=== PATIENT | male | born 1935 | race Caucasian/White ===

== ENCOUNTER 2023-02-14 17:27 | Emergency (ER) | payer OTHER ==
[~2023-02-14] VITALS: Ht 177.8 cm; Wt 68.9 kg
[2023-02-14] MEDS ORDERED: ACETAMINOPHEN ES 500 MG TABLET PO ONE (18:30)
[2023-02-14] MEDS ORDERED: PIPERACILLIN /TAZOBACTAM 3.375 G in IV D5W 50 ML IV ONE (18:30)
[2023-02-14] MEDS ORDERED: VANCOMYCIN 1 GM in IV D5W 250 ML IV ONE (18:30)
[2023-02-14] MEDS ORDERED: IV NS 0.9% 1,000 ML BAG IV ONE (18:30)
[2023-02-14] MEDS ORDERED: ACETAMINOPHEN ES 500 MG TABLET ONE (18:41)
[2023-02-14 19:07] LABS: BASOPHILS % (AUTO) 0.2 % (0.0-2.0); EOSINOPHILS % (AUTO) 0.2 % (0.0-6.0); HEMATOCRIT 37 % (39-51); HEMOGLOBIN 12.3 g/dL (13.5-17.5); LYMPHOCYTES # (AUTO) 0.5 K/uL (0.8-4.8); LYMPHOCYTES % (AUTO) 3.9 % (20.0-44.0); MEAN CORPUSCULAR HEMOGLOBIN 33 PG (26.0-33.0); MEAN CORPUSCULAR HGB CONC 33 g/dl (31.0-36.0); MEAN CORPUSCULAR VOLUME 98 fL (80-96); MONOCYTES # (AUTO) 0.9 K/uL (0.1-1.30); MONOCYTES % (AUTO) 6.8 % (2.0-12.0); NEUTROPHILS # (AUTO) 11.9 K/uL (1.8-8.9); NEUTROPHILS % (AUTO) 88.9 % (43.0-81.0); PLATELET COUNT (AUTO) 340 K/uL (150-450); RED BLOOD CELL COUNT(AUTO) 3.79 MIL/uL (4.5-6.0); RED CELL DISTRIBUTION WIDTH 13.1 % (11.5-15.0); WHITE BLOOD COUNT (AUTO) 13.4 K/uL (4.3-11.0)
[2023-02-14] MEDS ORDERED: PIPERACI/TAZO 3.375GM/D5W 50ML PB IV ONE (19:13)
[2023-02-14] MEDS ORDERED: VANCOMYCIN 1 GM /D5W 250 ML PB IV ONE (19:22)
[2023-02-14 19:35] LABS: LACTIC ACID 1.2 mmol/L (0.4-2.0)
[2023-02-14 19:48] LABS: ALANINE AMINOTRANSFERASE 25 U/L (12-78); ALBUMIN 3.3 g/dL (3.4-5.0); ALKALINE PHOSPHATASE 100 U/L (46-116); ASPARTATE AMINOTRANSFERASE 25 U/L (15-37); BILIRUBIN,DIRECT 0.2 mg/dL (0.0-0.2); BILIRUBIN,TOTAL 0.5 mg/dL (0.2-1.0); CALCIUM, SERUM 9.5 mg/dL (8.5-10.1); CARBON DIOXIDE 28 mmol/L (21-32); CHLORIDE 105 mmol/L (98-107); CREATININE 0.8 mg/dL (0.6-1.3); GLUCOSE 105 mg/dL (74-106); POTASSIUM 3.8 mmol/L (3.5-5.1); SODIUM SERUM 140 mmol/L (136-145); TOTAL PROTEIN, SERUM 6.4 g/dL (6.4-8.2); UREA NITROGEN, BLOOD 24 mg/dL (7-18)
[2023-02-14 19:54] LABS: ANISOCYTOSIS 1+; LYMPHOCYTES % (MANUAL) 5 % (16-48); MONOCYTES % (MANUAL) 8 % (0-11.0); NEUTROPHILS % (MANUAL) 87 (42-76); PLATELET ESTIMATE ADEQUATE
[2023-02-14 20:03] LABS: APPEARANCE,URINE CLEAR (CLEAR); BILIRUBIN,URINE NEGATIVE (NEGATIVE); BLOOD, URINE NEGATIVE Ery/uL (NEGATIVE); COLOR,URINE YELLOW (YELLOW); KETONES,URINE TRACE mg/dL (NEGATIVE); LEUKOCYTE ESTERASE ,URINE NEGATIVE (NEGATIVE); NITRITE, URINE NEGATIVE (NEGATIVE); PROTEIN,URINE TRACE mg/dl (NEGATIVE); UGLUCOSE NEGATIVE (NEGATIVE); UROBILINOGEN,URINE 0.2 EU/dL (0.2)
[2023-02-14 20:05] LABS: PH,URINE 8.5 (5.0-8.0)
[2023-02-14 20:09] LABS: ADD URINE CULTURE NO; BACTERIA,URINE None seen /HPF (None Seen); MUCUS,URINE Few /LPF (None Seen); RBC,URINE 0-2 /HPF (0-2); SQUAMOUS EPITHELIAL CELL,UR 0-2 /HPF (None Seen); WBC,URINE 0-2 /HPF (0-3)
[2023-02-14] MEDS ORDERED: LEVO750T46 PO (21:08)
[2023-02-14 21:31] VITALS: BP 106/60; TEMP 98.4; O2SAT 95
== END 2023-02-14 21:31 | disposition home or self-care (01) ==
LOC: ER 17:29
DX: R50.9 Fever, unspecified (principal); R11.2 Nausea with vomiting, unspecified; Z79.899 Other long term (current) drug therapy
CPT/HCPCS: 99285; 96365; 71045; 96367; 96361; 93005; 84145; 85025; 80048; 87040 ×2; 87086; 83605; 80076; 81001; 36415; 84484 ×2; 85007; J3370 ×2; J2543 ×2; J7060; J7030; A4223

== ENCOUNTER 2023-09-07 05:56 | Inpatient (IN) | payer OTHER ==
[2023-09-07] VITALS (16 sets, daily range): BP systolic 79–98; BP diastolic 57–72; TEMP 97.5–98; O2SAT 88–99
[~2023-09-07] VITALS: Ht 182.9 cm; Wt 74.4 kg
[~2023-09-07 05:56] MED LIST: LEVO750T46 PO
[2023-09-07] MEDS: IV NS 0.9% 1,000 ML BAG IV ONE ×3 (06:14→07:39)
[2023-09-07] MEDS ORDERED: VANCOMYCIN 1 GM /D5W 250 ML PB IV ONE (06:15)
[2023-09-07] MEDS: VANCOMYCIN 1 GM in IV D5W 250 ML IV ONE (06:24)
[2023-09-07] MEDS: PIPERACILLIN /TAZOBACTAM 3.375 G in IV D5W 50 ML IV ONE (06:30)
[2023-09-07] MEDS ORDERED: ONDANSETRON HCL/PF 4 MG/2 ML VIAL ONE (06:32)
[2023-09-07 06:33] LABS: BASOPHILS % (AUTO) 0.1 % (0.0-2.0); HEMATOCRIT 35 % (39-51); HEMOGLOBIN 11.1 g/dL (13.5-17.5); LYMPHOCYTES # (AUTO) 0.6 K/uL (0.8-4.8); LYMPHOCYTES % (AUTO) 3.3 % (20.0-44.0); MEAN CORPUSCULAR HEMOGLOBIN 33 PG (26.0-33.0); MEAN CORPUSCULAR HGB CONC 32 g/dl (31.0-36.0); MEAN CORPUSCULAR VOLUME 102 fL (80-96); MONOCYTES # (AUTO) 1.2 K/uL (0.1-1.30); MONOCYTES % (AUTO) 7.4 % (2.0-12.0); NEUTROPHILS # (AUTO) 14.8 K/uL (1.8-8.9); NEUTROPHILS % (AUTO) 89.2 % (43.0-81.0); PLATELET COUNT (AUTO) 192 K/uL (150-450); RED CELL DISTRIBUTION WIDTH 14.7 % (11.5-15.0); WHITE BLOOD COUNT (AUTO) 16.6 K/uL (4.3-11.0)
[2023-09-07 06:43] LABS: INR 1.24 (0.91-1.10); PARTIAL THROMBOPLASTIN TIME 28.5 SEC (24.3-34.3)
[2023-09-07] MEDS: ONDANSETRON HCL/PF - ER 4 MG/2 ML VIAL IV ONE (06:50)
[2023-09-07 06:55] LABS: LACTIC ACID 8.3 mmol/L (0.4-2.0)
[2023-09-07 07:01] LABS: CALCIUM, SERUM 8.9 mg/dL (8.5-10.1); CARBON DIOXIDE 14 mmol/L (21-32); CHLORIDE 98 mmol/L (98-107); CREATININE 1.9 mg/dL (0.6-1.3); POTASSIUM 4.9 mmol/L (3.5-5.1); SODIUM SERUM 138 mmol/L (136-145); UREA NITROGEN, BLOOD 47 mg/dL (7-18)
[2023-09-07 07:07] LABS: ALANINE AMINOTRANSFERASE 36 U/L (12-78); ALBUMIN 3.1 g/dL (3.4-5.0); ALKALINE PHOSPHATASE 64 U/L (46-116); ASPARTATE AMINOTRANSFERASE 47 U/L (15-37); BILIRUBIN,DIRECT 0.3 mg/dL (0.0-0.2); BILIRUBIN,TOTAL 0.8 mg/dL (0.2-1.0); TOTAL PROTEIN, SERUM 5.9 g/dL (6.4-8.2)
[2023-09-07 07:12] LABS: GLUCOSE 624 mg/dL (74-106)
[2023-09-07] MEDS ORDERED: ASPIRIN 325 MG TABLET ONE (07:49)
[2023-09-07] MEDS: ASPIRIN 325 MG TABLET PO ONE (07:53)
[2023-09-07] MEDS: INSULIN REGULAR, HUMAN 100 UNITS in IV NS 0.9% 100 ML IV PRN (08:25)
[2023-09-07] MEDS ORDERED: MAGNESIUM HYDROXIDE 30 ML UDC PO PRN (12:30)
[2023-09-07] MEDS ORDERED: MAG HYDROX/AL HYDROX/SIMETH 30 ML UDC PO PRN (12:30)
[2023-09-07] MEDS ORDERED: HYDROCODONE/APAP 5/325MG TABLET PO PRN (12:30)
[2023-09-07] MEDS ORDERED: Z GUARD REMEDY 4 OZ OINT TP PRN (12:30)
[2023-09-07] MEDS ORDERED: ZOLPIDEM TARTRATE 5 MG TABLET PO PRN (12:30)
[2023-09-07] MEDS: BLOOD SUGAR DIAGNOSTIC 1 EACH STRIP IN SCH (13:00)
[2023-09-07] MEDS: ZOSYN IVPB 2.25 G in IV D5W 50ml IV SCH (13:30)
[2023-09-07] MEDS: IV 1/2NS 1000 ML 1,000 ML IV PRN ×2 (13:50→22:21)
[2023-09-07] MEDS ORDERED: LEVO25TA9 PO (13:53)
[2023-09-07] MEDS ORDERED: CHOL500062 PO (13:53)
[2023-09-07] MEDS ORDERED: INSU100V SQ (13:53)
[2023-09-07] MEDS ORDERED: FINA5TAB3 PO (13:53)
[2023-09-07] MEDS ORDERED: ALEN70TA3 PO (13:53)
[2023-09-07] MEDS ORDERED: DABI110C PO (13:53)
[2023-09-07] MEDS ORDERED: SERT25TA5 PO (13:53)
[2023-09-07] MEDS ORDERED: PANT20TA17 PO (13:53)
[2023-09-07] MEDS ORDERED: ACET-2812 PO (13:53)
[2023-09-07] MEDS ORDERED: ATOR80TA PO (13:53)
[2023-09-07] MEDS ORDERED: CALC-1143 PO (13:53)
[2023-09-07] MEDS ORDERED: TERA5CAP4 PO (13:53)
[2023-09-07 14:02] LABS: CALCIUM, SERUM 7.7 mg/dL (8.5-10.1); CARBON DIOXIDE 19 mmol/L (21-32); CHLORIDE 103 mmol/L (98-107); CREATININE 2.3 mg/dL (0.6-1.3); POTASSIUM 3.7 mmol/L (3.5-5.1); SODIUM SERUM 139 mmol/L (136-145); UREA NITROGEN, BLOOD 48 mg/dL (7-18)
[2023-09-07 14:42] LABS: GLUCOSE 500 mg/dL (74-106); LACTIC ACID 3.9 mmol/L (0.4-2.0)
[2023-09-07] MEDS ORDERED: HEPARIN SODIUM, PORCINE 5000 UNITS/1 ML VIAL IV ONE ×2 (16:00)
[2023-09-07] MEDS: INSULIN REGULAR, HUMAN 100 UNIT in IV NS 0.9% 99 ML IV PRN (16:19)
[2023-09-07] MEDS: HEPARIN SODIUM, PORCINE 5000 UNITS/1 ML VIAL IV ONE (16:26)
[2023-09-07] MEDS: HEPARIN INFUSION/D5W 500 ML IV PRN (16:28)
[2023-09-07 19:18] LABS: CALCIUM, SERUM 7.8 mg/dL (8.5-10.1); CARBON DIOXIDE 23 mmol/L (21-32); CHLORIDE 105 mmol/L (98-107); CREATININE 2.3 mg/dL (0.6-1.3); GLUCOSE 377 mg/dL (74-106); POTASSIUM 4.1 mmol/L (3.5-5.1); SODIUM SERUM 139 mmol/L (136-145); UREA NITROGEN, BLOOD 52 mg/dL (7-18)
[2023-09-07] MEDS: ONDANSETRON HCL/PF 4 MG/2 ML VIAL IVP PRN (20:16)
[2023-09-07 22:56] LABS: CARBON DIOXIDE 21 mmol/L (21-32); CHLORIDE 106 mmol/L (98-107); CREATININE 2.4 mg/dL (0.6-1.3); GLUCOSE 248 mg/dL (74-106); POTASSIUM 3.7 mmol/L (3.5-5.1); SODIUM SERUM 141 mmol/L (136-145); UREA NITROGEN, BLOOD 53 mg/dL (7-18)
[2023-09-08] VITALS (68 sets, daily range): BP systolic 76–112; BP diastolic 50–79; TEMP 97.6–98.5; O2SAT 92–99
[2023-09-08] MEDS ORDERED: IV PREMIX D5 1/2NS + KCL 1,000 ML IV ONE (00:06)
[2023-09-08] MEDS: Potassium Chloride 20 MEQ in IV D5/0.45 NACL 1,000 ML IV PRN (00:26)
[2023-09-08 02:17] LABS: CALCIUM, SERUM 7.8 mg/dL (8.5-10.1); CARBON DIOXIDE 22 mmol/L (21-32); CHLORIDE 104 mmol/L (98-107); CREATININE 2.3 mg/dL (0.6-1.3); GLUCOSE 144 mg/dL (74-106); POTASSIUM 3.7 mmol/L (3.5-5.1); SODIUM SERUM 137 mmol/L (136-145); UREA NITROGEN, BLOOD 58 mg/dL (7-18)
[2023-09-08 05:20] LABS: BASOPHILS % (AUTO) 0.1 % (0.0-2.0); HEMATOCRIT 37 % (39-51); HEMOGLOBIN 12.3 g/dL (13.5-17.5); LYMPHOCYTES % (AUTO) 3.7 % (20.0-44.0); MEAN CORPUSCULAR HEMOGLOBIN 33 PG (26.0-33.0); MEAN CORPUSCULAR HGB CONC 34 g/dl (31.0-36.0); MEAN CORPUSCULAR VOLUME 98 fL (80-96); MONOCYTES # (AUTO) 1.9 K/uL (0.1-1.30); NEUTROPHILS # (AUTO) 24.5 K/uL (1.8-8.9); NEUTROPHILS % (AUTO) 89.2 % (43.0-81.0); PLATELET COUNT (AUTO) 201 K/uL (150-450); RED BLOOD CELL COUNT(AUTO) 3.75 MIL/uL (4.5-6.0); WHITE BLOOD COUNT (AUTO) 27.5 K/uL (4.3-11.0)
[2023-09-08 05:48] LABS: SITE, VBG Right Brachial; VBG BASE EXCESS -14.9 mmol/L (-3-3); VBG COHb 0.3 %; VBG MetHb 0.3 %; VBG O2Hb 87.9 %; VBG OXYGEN SATURATION 88.4 %; VBG PCO2 21.6 mmHg (40-52); VBG PH 7.281 (7.31-7.41); VBG PO2 61.7 mmHg (30-50); VBG TOTAL HEMOGLOBIN 11.7 G/dL (13.5-18.0); VENT MODE, VBG 6L NC
[2023-09-08 05:49] LABS: CALCIUM, SERUM 7.9 mg/dL (8.5-10.1); CARBON DIOXIDE 20 mmol/L (21-32); CHLORIDE 106 mmol/L (98-107); CREATININE 2.3 mg/dL (0.6-1.3); GLUCOSE 144 mg/dL (74-106); PHOSPHORUS 4.7 mg/dL (2.5-4.9); POTASSIUM 3.8 mmol/L (3.5-5.1); SODIUM SERUM 140 mmol/L (136-145); UREA NITROGEN, BLOOD 58 mg/dL (7-18)
[2023-09-08 05:49] LABS: ABG BASE EXCESS -6.1 mmol/L; ABG PCO2 30.4 mmHg (35.0-45.0); ABG PH 7.385 (7.350-7.450); ABG PO2 65.9 mmHg (75.0-100.0); AaDO2 220.4 mmHg; COHb 0.3 % (0.5-1.5); MetHb 0.2 % (0.0-1.5); O2Hb 91.5 % (94.0-97.0); SITE, ABG Right Radial; VENT MODE, BG 6L O2 SM
[2023-09-08 05:55] LABS: THYROID STIMULATING HORMONE 3.921 uIU/mL (0.358-3.74)
[2023-09-08] MEDS: VANCOMYCIN 750 MG in IV D5W 250 ML IV SCH (06:19)
[2023-09-08 08:50] LABS: CALCIUM, SERUM 7.6 mg/dL (8.5-10.1); CARBON DIOXIDE 20 mmol/L (21-32); CHLORIDE 105 mmol/L (98-107); CREATININE 2.3 mg/dL (0.6-1.3); GLUCOSE 171 mg/dL (74-106); POTASSIUM 3.8 mmol/L (3.5-5.1); SODIUM SERUM 137 mmol/L (136-145); UREA NITROGEN, BLOOD 59 mg/dL (7-18)
[2023-09-08] MEDS: ASPIRIN 81 MG TAB.CHEW PO SCH (09:35)
[2023-09-08] MEDS: PANTOPRAZOLE 40 MG VIAL IV SCH (09:35)
[2023-09-08] MEDS: INSULIN GLARGINE, 100 UNIT/ML CARTRIDGE SQ SCH ×2 (09:55→22:01)
[2023-09-08] MEDS: PHENYLEPHRINE 50 MG in IV NS 0.9% 245 ML IV PRN (10:23)
[2023-09-08] MEDS: BLOOD SUGAR DIAGNOSTIC 1 EACH STRIP VI SCH (12:39)
[2023-09-08] MEDS: INSULIN REGULAR, HUMAN 100 UNIT/ML 3 ML VIAL SQ PRN (12:48)
[2023-09-08 15:01] LABS: CALCIUM, SERUM 6.8 mg/dL (8.5-10.1); CARBON DIOXIDE 16 mmol/L (21-32); CHLORIDE 99 mmol/L (98-107); CREATININE 2.1 mg/dL (0.6-1.3); GLUCOSE 333 mg/dL (74-106); POTASSIUM 3.4 mmol/L (3.5-5.1); SODIUM SERUM 133 mmol/L (136-145); UREA NITROGEN, BLOOD 56 mg/dL (7-18)
[2023-09-08 15:10] LABS: LACTIC ACID 1.9 mmol/L (0.4-2.0)
[2023-09-08] MEDS ORDERED: Medication Not On Formulary EA (Acetaminophen (Acetaminophen Er) 650 MG) PO PRN (16:30)
[2023-09-08] MEDS: CALCIUM CARBONATE (1250) 500 MG TABLET PO SCH (18:42)
[2023-09-08] MEDS ORDERED: DABIGATRAN ETEXILATE MESYLATE 110 MG PO SCH (21:00)
[2023-09-08] MEDS ORDERED: POLYETHYLENE GLYCOL 3350 17 GM POWD.PACK PO PRN (21:00)
[2023-09-08] MEDS: TERAZOSIN HCL 5 MG CAPSULE PO SCH (21:45)
[2023-09-08] MEDS: ATORVASTATIN 40 MG TABLET PO SCH (21:45)
[2023-09-08 22:52] LABS: BILIRUBIN,URINE 1+ (NEGATIVE); BLOOD, URINE NEGATIVE Ery/uL (NEGATIVE); COLOR,URINE YELLOW (YELLOW); KETONES,URINE 1+ mg/dL (NEGATIVE); LEUKOCYTE ESTERASE ,URINE NEGATIVE (NEGATIVE); NITRITE, URINE NEGATIVE (NEGATIVE); PH,URINE 5.5 (5.0-8.0); PROTEIN,URINE TRACE mg/dl (NEGATIVE); UGLUCOSE 1+ mg/dL (NEGATIVE); UROBILINOGEN,URINE 0.2 EU/dL (0.2)
[2023-09-08 22:56] LABS: APPEARANCE,URINE CLOUDY (CLEAR)
[2023-09-08 23:08] LABS: CREATININE, URINE 147.5 MG/DL (30.0-125.0); URINE TOTAL PROTEIN 52.9 mg/dL (0-11.9)
[2023-09-09] VITALS (96 sets, daily range): BP systolic 90–115; BP diastolic 62–83; TEMP 97.7–100; O2SAT 92–98
[2023-09-09 00:54] LABS: ADD URINE CULTURE NO; BACTERIA,URINE Few /HPF (None Seen); COARSE GRANULAR CASTS,URINE Few /LPF (None Seen); RBC,URINE 0-2 /HPF (0-2); SQUAMOUS EPITHELIAL CELL,UR None Seen /HPF (None Seen); URINE AMORPHOUS URATE Many /HPF (None Seen); WBC,URINE 0-2 /HPF (0-3)
[2023-09-09 00:55] LABS: EOSINOPHIL,URINE None Seen
[2023-09-09 01:30] LABS: ABG BASE EXCESS -5.5 mmol/L; ABG OXYGEN SATURATION 95.5 % (92.0-98.5); ABG PCO2 31.2 mmHg (35.0-45.0); ABG PH 7.388 (7.350-7.450); ABG PO2 81.9 mmHg (75.0-100.0); ABG TOTAL HEMOGLOBIN 13.3 G/dL (13.5-18.0); AaDO2 599.9 mmHg; COHb 0.2 % (0.5-1.5); MetHb 0.1 % (0.0-1.5); O2Hb 95.2 % (94.0-97.0); SITE, ABG Right Radial; VENT MODE, BG 15L NRB
[2023-09-09] MEDS: IV NS 0.9% 500 ML IV PRN (06:22)
[2023-09-09 06:28] LABS: CALCIUM, SERUM 7.8 mg/dL (8.5-10.1); CARBON DIOXIDE 22 mmol/L (21-32); CHLORIDE 104 mmol/L (98-107); CREATININE 1.8 mg/dL (0.6-1.3); GLUCOSE 217 mg/dL (74-106); PHOSPHORUS 4.2 mg/dL (2.5-4.9); POTASSIUM 3.6 mmol/L (3.5-5.1); SODIUM SERUM 137 mmol/L (136-145); UREA NITROGEN, BLOOD 57 mg/dL (7-18)
[2023-09-09 06:29] LABS: ALANINE AMINOTRANSFERASE 150 U/L (12-78); ALBUMIN 2.4 g/dL (3.4-5.0); ALKALINE PHOSPHATASE 54 U/L (46-116); ASPARTATE AMINOTRANSFERASE 255 U/L (15-37); BILIRUBIN,TOTAL 0.5 mg/dL (0.2-1.0); CREATINE KINASE, TOTAL 703 U/L (39-308)
[2023-09-09 06:30] LABS: TOTAL PROTEIN, SERUM 5.1 g/dL (6.4-8.2)
[2023-09-09] MEDS: CHOLECALCIFEROL 1,000 UNIT TABLET (VIT D3) PO SCH (08:48)
[2023-09-09] MEDS: PANTOPRAZOLE 40 MG TABLET.DR PO SCH (08:48)
[2023-09-09] MEDS: DOCUSATE SODIUM 100 MG CAPSULE PO SCH (08:49)
[2023-09-09] MEDS: FINASTERIDE (5 MG) 5 MG TABLET PO SCH (08:49)
[2023-09-09] MEDS: SERTRALINE HCL 25 MG TABLET PO SCH (08:49)
[2023-09-09] MEDS: LEVOTHYROXINE SODIUM 25 MCG TABLET PO SCH (08:49)
[2023-09-09] MEDS: INSULIN LISPRO/ASPART 100 UNIT/ML CARTRIDGE SQ SCH (09:04)
[2023-09-09 09:54] LABS: BASOPHILS % (AUTO) 0.1 % (0.0-2.0); HEMATOCRIT 33 % (39-51); HEMOGLOBIN 11.2 g/dL (13.5-17.5); LYMPHOCYTES # (AUTO) 0.7 K/uL (0.8-4.8); LYMPHOCYTES % (AUTO) 3.8 % (20.0-44.0); MEAN CORPUSCULAR HEMOGLOBIN 33 PG (26.0-33.0); MEAN CORPUSCULAR HGB CONC 34 g/dl (31.0-36.0); MEAN CORPUSCULAR VOLUME 98 fL (80-96); MONOCYTES # (AUTO) 1.6 K/uL (0.1-1.30); MONOCYTES % (AUTO) 8.8 % (2.0-12.0); NEUTROPHILS # (AUTO) 16.2 K/uL (1.8-8.9); NEUTROPHILS % (AUTO) 87.3 % (43.0-81.0); PLATELET COUNT (AUTO) 174 K/uL (150-450); RED CELL DISTRIBUTION WIDTH 13.9 % (11.5-15.0); WHITE BLOOD COUNT (AUTO) 18.5 K/uL (4.3-11.0)
[2023-09-09] MEDS: DEXTROSE 50%-WATER 50 ML DISP.SYRIN IV PRN (15:41)
[2023-09-09 16:40] LABS: ABG BASE EXCESS -5.8 mmol/L; ABG OXYGEN SATURATION 93.2 % (92.0-98.5); ABG PCO2 28.9 mmHg (35.0-45.0); ABG PH 7.404 (7.350-7.450); ABG PO2 65.9 mmHg (75.0-100.0); ABG TOTAL HEMOGLOBIN 12.6 G/dL (13.5-18.0); AaDO2 330.1 mmHg; COHb 0.4 % (0.5-1.5); MetHb 0.1 % (0.0-1.5); O2Hb 92.7 % (94.0-97.0); SITE, ABG Right Radial; VENT MODE, BG SIMPLE MASK
[2023-09-09] MEDS: PHENYLEPHRINE 100 MG in IV NS 0.9% 240 ML IV PRN (18:11)
[2023-09-09] MEDS: IV D5W 1,000 ML IV PRN (20:01)
[2023-09-09] MEDS: *INSULIN REGULAR(HUMULIN R)HUM 100 UNIT/ML VIAL SQ PRN (22:19)
[2023-09-10] VITALS (115 sets, daily range): BP systolic 82–126; BP diastolic 55–95; TEMP 97.9–98.6; O2SAT 87–97
[2023-09-10 05:05] LABS: HEMATOCRIT 35 % (39-51); HEMOGLOBIN 11.6 g/dL (13.5-17.5); LYMPHOCYTES # (AUTO) 0.9 K/uL (0.8-4.8); LYMPHOCYTES % (AUTO) 5.5 % (20.0-44.0); MEAN CORPUSCULAR HEMOGLOBIN 33 PG (26.0-33.0); MEAN CORPUSCULAR HGB CONC 34 g/dl (31.0-36.0); MEAN CORPUSCULAR VOLUME 98 fL (80-96); MONOCYTES # (AUTO) 1.7 K/uL (0.1-1.30); MONOCYTES % (AUTO) 10.2 % (2.0-12.0); NEUTROPHILS # (AUTO) 13.9 K/uL (1.8-8.9); NEUTROPHILS % (AUTO) 84.3 % (43.0-81.0); PLATELET COUNT (AUTO) 179 K/uL (150-450); RED BLOOD CELL COUNT(AUTO) 3.55 MIL/uL (4.5-6.0); WHITE BLOOD COUNT (AUTO) 16.5 K/uL (4.3-11.0)
[2023-09-10 05:21] LABS: CALCIUM, SERUM 8.2 mg/dL (8.5-10.1); CREATININE 1.3 mg/dL (0.6-1.3); MAGNESIUM 1.8 mg/dL (1.8-2.4); PHOSPHORUS 2.6 mg/dL (2.5-4.9); POTASSIUM 3.4 mmol/L (3.5-5.1)
[2023-09-10 05:34] LABS: ALBUMIN 2.3 g/dL (3.4-5.0); BILIRUBIN,DIRECT 0.4 mg/dL (0.0-0.2); BILIRUBIN,TOTAL 0.8 mg/dL (0.2-1.0); TOTAL PROTEIN, SERUM 5.4 g/dL (6.4-8.2)
[2023-09-10] MEDS: POTASSIUM CHLORIDE 20 MEQ TAB.PRT.SR PO SCH (08:51)
[2023-09-10] MEDS: FUROSEMIDE 40 MG/4 ML VIAL IV SCH (08:57)
[2023-09-10 11:09] LABS: *SPE A/G RATIO 1.4 (0.7-1.7); *SPE ALBUMIN 2.7 g/dL (2.9-4.4); *SPE ALPHA-1-GLOBULIN 0.2 g/dL (0.0-0.4); *SPE ALPHA-2-GLOBULIN 0.6 g/dL (0.4-1.0); *SPE BETA GLOBULIN 0.6 g/dL (0.7-1.3); *SPE M-SPIKE Not Observed g/dL (Not Observed); *SPE PROTEIN TOTAL 4.7 g/dL (6.0-8.5); *SPEGAMMA GLOBULIN 0.6 g/dL (0.4-1.8); PTH, INTACT 161 pg/mL (15-65)
[2023-09-10] MEDS: GLUCERNA SHAKE 237 ML CAN PO SCH (17:34)
[2023-09-10] MEDS: NOREPINEPHRINE 32 MG in IV NS 0.9% 218 ML IV PRN (20:59)
[2023-09-11] VITALS (106 sets, daily range): BP systolic 84–129; BP diastolic 55–99; TEMP 98–98.6; O2SAT 90–99
[2023-09-11] MEDS: IV NS 0.9% 250 ML IV PRN (00:15)
[2023-09-11 04:55] LABS: EOSINOPHILS % (AUTO) 0.1 % (0.0-6.0); HEMATOCRIT 36 % (39-51); HEMOGLOBIN 12.1 g/dL (13.5-17.5); LYMPHOCYTES # (AUTO) 1.2 K/uL (0.8-4.8); LYMPHOCYTES % (AUTO) 6.6 % (20.0-44.0); MEAN CORPUSCULAR HEMOGLOBIN 33 PG (26.0-33.0); MEAN CORPUSCULAR HGB CONC 34 g/dl (31.0-36.0); MEAN CORPUSCULAR VOLUME 97 fL (80-96); MONOCYTES # (AUTO) 2.2 K/uL (0.1-1.30); MONOCYTES % (AUTO) 12.5 % (2.0-12.0); NEUTROPHILS # (AUTO) 14.4 K/uL (1.8-8.9); NEUTROPHILS % (AUTO) 80.8 % (43.0-81.0); PLATELET COUNT (AUTO) 175 K/uL (150-450); RED BLOOD CELL COUNT(AUTO) 3.68 MIL/uL (4.5-6.0); RED CELL DISTRIBUTION WIDTH 14.2 % (11.5-15.0); WHITE BLOOD COUNT (AUTO) 17.9 K/uL (4.3-11.0)
[2023-09-11 05:09] LABS: ALANINE AMINOTRANSFERASE 157 U/L (12-78); ALBUMIN 2.1 g/dL (3.4-5.0); ALKALINE PHOSPHATASE 101 U/L (46-116); ASPARTATE AMINOTRANSFERASE 93 U/L (15-37); BILIRUBIN,DIRECT 0.4 mg/dL (0.0-0.2); CALCIUM, SERUM 8.3 mg/dL (8.5-10.1); CARBON DIOXIDE 22 mmol/L (21-32); CHLORIDE 103 mmol/L (98-107); CREATININE 1.3 mg/dL (0.6-1.3); GLUCOSE 149 mg/dL (74-106); MAGNESIUM 1.8 mg/dL (1.8-2.4); PHOSPHORUS 2.7 mg/dL (2.5-4.9); SODIUM SERUM 137 mmol/L (136-145); TOTAL PROTEIN, SERUM 5.4 g/dL (6.4-8.2); UREA NITROGEN, BLOOD 38 mg/dL (7-18)
[2023-09-11] MEDS: VANCOMYCIN 1 GM in IV D5W 250 ML IV SCH (05:42)
[2023-09-11] MEDS: ALENDRONATE 70 MG TABLET PO SCH (06:31)
[2023-09-11] MEDS: BUMETANIDE INJ 8 MG in IV NS 0.9% 48 ML IV ONE (08:26)
[2023-09-11] MEDS: METOLAZONE 2.5 MG TABLET PO SCH (10:49)
[2023-09-12] VITALS (110 sets, daily range): BP systolic 92–132; BP diastolic 57–88; TEMP 98.3–98.8; O2SAT 92–99
[2023-09-12 05:26] LABS: BASOPHILS % (AUTO) 0.1 % (0.0-2.0); EOSINOPHILS % (AUTO) 0.1 % (0.0-6.0); HEMATOCRIT 36 % (39-51); HEMOGLOBIN 11.9 g/dL (13.5-17.5); LYMPHOCYTES # (AUTO) 0.7 K/uL (0.8-4.8); LYMPHOCYTES % (AUTO) 3.9 % (20.0-44.0); MEAN CORPUSCULAR HEMOGLOBIN 33 PG (26.0-33.0); MEAN CORPUSCULAR HGB CONC 34 g/dl (31.0-36.0); MEAN CORPUSCULAR VOLUME 98 fL (80-96); MONOCYTES # (AUTO) 2.2 K/uL (0.1-1.30); MONOCYTES % (AUTO) 12.8 % (2.0-12.0); NEUTROPHILS # (AUTO) 14.3 K/uL (1.8-8.9); NEUTROPHILS % (AUTO) 83.1 % (43.0-81.0); PLATELET COUNT (AUTO) 182 K/uL (150-450); RED BLOOD CELL COUNT(AUTO) 3.65 MIL/uL (4.5-6.0); WHITE BLOOD COUNT (AUTO) 17.2 K/uL (4.3-11.0)
[2023-09-12 05:56] LABS: ALANINE AMINOTRANSFERASE 115 U/L (12-78); ALKALINE PHOSPHATASE 96 U/L (46-116); ASPARTATE AMINOTRANSFERASE 44 U/L (15-37); BILIRUBIN,DIRECT 0.6 mg/dL (0.0-0.2); BILIRUBIN,TOTAL 1.2 mg/dL (0.2-1.0); CALCIUM, SERUM 8.2 mg/dL (8.5-10.1); CARBON DIOXIDE 22 mmol/L (21-32); CHLORIDE 102 mmol/L (98-107); CREATININE 1.5 mg/dL (0.6-1.3); GLUCOSE 256 mg/dL (74-106); MAGNESIUM 1.9 mg/dL (1.8-2.4); PHOSPHORUS 3.7 mg/dL (2.5-4.9); POTASSIUM 3.3 mmol/L (3.5-5.1); SODIUM SERUM 136 mmol/L (136-145); TOTAL PROTEIN, SERUM 5.2 g/dL (6.4-8.2); UREA NITROGEN, BLOOD 46 mg/dL (7-18)
[2023-09-12] MEDS ORDERED: POTASSIUM CHLORIDE 20 MEQ TAB.PRT.SR PO SCH ×2 (08:00→10:00)
[2023-09-12] MEDS ORDERED: DOBUTamine 500 MG in IV D5W 210 ML IV PRN (08:30)
[2023-09-12] MEDS: DOBUTamine 500 MG in IV D5W 210 ML IV PRN (10:19)
[2023-09-12] MEDS: POTASSIUM CHLORIDE 20 MEQ POWDER PACKET PO SCH (11:23)
[2023-09-12] MEDS: FUROSEMIDE 100 MG/10 ML VIAL IV SCH (11:24)
[2023-09-13] VITALS (103 sets, daily range): BP systolic 90–135; BP diastolic 44–101; TEMP 97.6–98.6; O2SAT 92–99
[2023-09-13 04:58] LABS: BASOPHILS % (AUTO) 0.1 % (0.0-2.0); EOSINOPHILS % (AUTO) 0.1 % (0.0-6.0); HEMATOCRIT 34 % (39-51); HEMOGLOBIN 11.5 g/dL (13.5-17.5); LYMPHOCYTES # (AUTO) 0.6 K/uL (0.8-4.8); LYMPHOCYTES % (AUTO) 4.2 % (20.0-44.0); MEAN CORPUSCULAR HEMOGLOBIN 33 PG (26.0-33.0); MEAN CORPUSCULAR HGB CONC 34 g/dl (31.0-36.0); MEAN CORPUSCULAR VOLUME 99 fL (80-96); MONOCYTES # (AUTO) 1.7 K/uL (0.1-1.30); MONOCYTES % (AUTO) 11.5 % (2.0-12.0); NEUTROPHILS # (AUTO) 12.8 K/uL (1.8-8.9); NEUTROPHILS % (AUTO) 84.1 % (43.0-81.0); PLATELET COUNT (AUTO) 167 K/uL (150-450); RED BLOOD CELL COUNT(AUTO) 3.44 MIL/uL (4.5-6.0); RED CELL DISTRIBUTION WIDTH 14.2 % (11.5-15.0); WHITE BLOOD COUNT (AUTO) 15.2 K/uL (4.3-11.0)
[2023-09-13 05:27] LABS: ALANINE AMINOTRANSFERASE 86 U/L (12-78); ALBUMIN 1.8 g/dL (3.4-5.0); ALKALINE PHOSPHATASE 96 U/L (46-116); ASPARTATE AMINOTRANSFERASE 33 U/L (15-37); BILIRUBIN,TOTAL 1.1 mg/dL (0.2-1.0); CALCIUM, SERUM 7.9 mg/dL (8.5-10.1); CARBON DIOXIDE 20 mmol/L (21-32); CHLORIDE 103 mmol/L (98-107); CREATININE 1.9 mg/dL (0.6-1.3); GLUCOSE 273 mg/dL (74-106); MAGNESIUM 1.8 mg/dL (1.8-2.4); PHOSPHORUS 4.1 mg/dL (2.5-4.9); POTASSIUM 3.7 mmol/L (3.5-5.1); SODIUM SERUM 138 mmol/L (136-145); TOTAL PROTEIN, SERUM 5.2 g/dL (6.4-8.2); UREA NITROGEN, BLOOD 61 mg/dL (7-18)
[2023-09-13] MEDS ORDERED: NOREPINEPHRINE 8 MG in IV D5W 250ML IV PRN (08:30)
[2023-09-13 08:47] LABS: APPEARANCE,URINE SLIGHTLY CLOUDY (CLEAR); BILIRUBIN,URINE NEGATIVE (NEGATIVE); BLOOD, URINE 3+ Ery/uL (NEGATIVE); COLOR,URINE YELLOW (YELLOW); KETONES,URINE NEGATIVE (NEGATIVE); LEUKOCYTE ESTERASE ,URINE 1+ (NEGATIVE); NITRITE, URINE NEGATIVE (NEGATIVE); PH,URINE 5.5 (5.0-8.0); PROTEIN,URINE 2+ mg/dl (NEGATIVE); UGLUCOSE NEGATIVE (NEGATIVE); UROBILINOGEN,URINE 0.2 EU/dL (0.2)
[2023-09-13 08:48] LABS: ADD URINE CULTURE YES; BACTERIA,URINE Rare /HPF (None Seen); EOSINOPHIL,URINE None Seen; SQUAMOUS EPITHELIAL CELL,UR Few /HPF (None Seen)
[2023-09-13 09:00] LABS: URINE TOTAL PROTEIN 110.9 mg/dL (0-11.9)
[2023-09-13] MEDS: HEPARIN SODIUM, PORCINE 5000 UNITS/1 ML VIAL SQ SCH (09:30)
[2023-09-13] MEDS ORDERED: POTASSIUM CHLORIDE 20 MEQ TAB.PRT.SR PO SCH (10:00)
[2023-09-13] MEDS: BUMETANIDE INJ 8 MG in IV NS 0.9% 48 ML IV ONE (10:23)
[2023-09-13] MEDS: AMIODARONE HCL 200 MG TABLET PO SCH (10:49)
[2023-09-13] MEDS: POTASSIUM CHLORIDE 20 MEQ POWDER PACKET PO SCH (10:50)
[2023-09-13 12:38] LABS: INR 1.13 (0.91-1.10); PROTHROMBIN TIME 11.9 SECS (9.2-11.1)
[2023-09-13] MEDS: POTASSIUM CL. PREMIX PERIPHER. 50 ML IV SCH (13:13)
[2023-09-14] VITALS (109 sets, daily range): BP systolic 82–180; BP diastolic 22–127; TEMP 97.6–98.7; O2SAT 81–99
[2023-09-14 05:01] LABS: HEMATOCRIT 33 % (39-51); LYMPHOCYTES # (AUTO) 0.4 K/uL (0.8-4.8); LYMPHOCYTES % (AUTO) 2.3 % (20.0-44.0); MEAN CORPUSCULAR HEMOGLOBIN 33 PG (26.0-33.0); MEAN CORPUSCULAR HGB CONC 33 g/dl (31.0-36.0); MEAN CORPUSCULAR VOLUME 99 fL (80-96); MONOCYTES # (AUTO) 1.4 K/uL (0.1-1.30); MONOCYTES % (AUTO) 8.7 % (2.0-12.0); NEUTROPHILS # (AUTO) 14.4 K/uL (1.8-8.9); PLATELET COUNT (AUTO) 164 K/uL (150-450); RED BLOOD CELL COUNT(AUTO) 3.34 MIL/uL (4.5-6.0); RED CELL DISTRIBUTION WIDTH 14.3 % (11.5-15.0); WHITE BLOOD COUNT (AUTO) 16.2 K/uL (4.3-11.0)
[2023-09-14 05:04] LABS: ALANINE AMINOTRANSFERASE 79 U/L (12-78); ALBUMIN 1.9 g/dL (3.4-5.0); ALKALINE PHOSPHATASE 95 U/L (46-116); ASPARTATE AMINOTRANSFERASE 53 U/L (15-37); CALCIUM, SERUM 7.7 mg/dL (8.5-10.1); CARBON DIOXIDE 18 mmol/L (21-32); CHLORIDE 100 mmol/L (98-107); CREATININE 2.8 mg/dL (0.6-1.3); MAGNESIUM 2.1 mg/dL (1.8-2.4); PHOSPHORUS 4.7 mg/dL (2.5-4.9); POTASSIUM 4.7 mmol/L (3.5-5.1); SODIUM SERUM 135 mmol/L (136-145); TOTAL PROTEIN, SERUM 5.1 g/dL (6.4-8.2)
[2023-09-14 05:38] LABS: GLUCOSE 447 mg/dL (74-106); UREA NITROGEN, BLOOD 81 mg/dL (7-18)
[2023-09-14] MEDS: PANTOPRAZOLE 40 MG VIAL IV SCH (08:17)
[2023-09-14 14:32] LABS: PROTEIN, BODY FLUID 1.1 G/DL
[2023-09-14 15:04] LABS: APPEARANCE,SPUN,BODY FLUID CLEAR (CLEAR); TOTAL VOLUME,BODY FLUID 1300 mL
[2023-09-14 15:05] LABS: WBC, BODY FLUID 154 /cu. mm. (0-200)
[2023-09-14 19:34] LABS: MACROPHAGES, BODY FLUID 35; MONOCYTES,BODY FLUID 0 %; POLYNUCLEAR, BODY FLUID 58 % (0-25)
[2023-09-14 20:27] LABS: ABG OXYGEN SATURATION 90.7 % (92.0-98.5); ABG PCO2 26.6 mmHg (35.0-45.0); ABG TOTAL HEMOGLOBIN 12.4 G/dL (13.5-18.0); AaDO2 336.5 mmHg; COHb 0.5 % (0.5-1.5); MetHb 0.3 % (0.0-1.5); SITE, ABG Right Radial
[2023-09-14] MEDS ORDERED: INSULIN GLARGINE, 100 UNIT/ML CARTRIDGE SQ SCH (22:00)
[2023-09-14] MEDS: INSULIN GLARGINE, 100 UNIT/ML CARTRIDGE SQ SCH (22:45)
[2023-09-15] VITALS (106 sets, daily range): BP systolic 84–124; BP diastolic 54–87; TEMP 97.7–98.8; O2SAT 88–94
[2023-09-15 04:50] LABS: BASOPHILS % (AUTO) 0.1 % (0.0-2.0); HEMATOCRIT 33 % (39-51); HEMOGLOBIN 11.2 g/dL (13.5-17.5); LYMPHOCYTES # (AUTO) 0.5 K/uL (0.8-4.8); LYMPHOCYTES % (AUTO) 2.8 % (20.0-44.0); MEAN CORPUSCULAR HEMOGLOBIN 33 PG (26.0-33.0); MEAN CORPUSCULAR HGB CONC 34 g/dl (31.0-36.0); MEAN CORPUSCULAR VOLUME 97 fL (80-96); MONOCYTES # (AUTO) 1.2 K/uL (0.1-1.30); MONOCYTES % (AUTO) 7.2 % (2.0-12.0); NEUTROPHILS # (AUTO) 15.2 K/uL (1.8-8.9); NEUTROPHILS % (AUTO) 89.9 % (43.0-81.0); PLATELET COUNT (AUTO) 164 K/uL (150-450); RED BLOOD CELL COUNT(AUTO) 3.41 MIL/uL (4.5-6.0); WHITE BLOOD COUNT (AUTO) 16.9 K/uL (4.3-11.0)
[2023-09-15 04:57] LABS: INR 1.2 (0.91-1.10); PROTHROMBIN TIME 12.6 SECS (9.2-11.1)
[2023-09-15 04:58] LABS: CALCIUM, SERUM 7.7 mg/dL (8.5-10.1); CARBON DIOXIDE 21 mmol/L (21-32); CHLORIDE 102 mmol/L (98-107); CREATININE 3.3 mg/dL (0.6-1.3); GLUCOSE 224 mg/dL (74-106); PHOSPHORUS 4.1 mg/dL (2.5-4.9); SODIUM SERUM 136 mmol/L (136-145)
[2023-09-15 05:22] LABS: UREA NITROGEN, BLOOD 93 mg/dL (7-18)
[2023-09-15] MEDS: PANTOPRAZOLE 40 MG TABLET.DR PO SCH (08:30)
[2023-09-15 10:41] LABS: ABG BASE EXCESS -3.5 mmol/L; ABG OXYGEN SATURATION 92.9 % (92.0-98.5); ABG PCO2 27.4 mmHg (35.0-45.0); ABG TOTAL HEMOGLOBIN 12.4 G/dL (13.5-18.0); AaDO2 544.6 mmHg; COHb 0.3 % (0.5-1.5); MetHb 0.3 % (0.0-1.5); O2Hb 92.3 % (94.0-97.0); SITE, ABG Right Radial; VENT MODE, BG 90% fio2 high flow NC
[2023-09-16] VITALS (107 sets, daily range): BP systolic 98–145; BP diastolic 54–117; TEMP 98.2–98.5; O2SAT 91–98
[2023-09-16] MEDS ORDERED: IV NS 0.9% 1,000 ML BAG IV PRN (05:30)
[2023-09-16 05:31] LABS: CALCIUM, SERUM 7.5 mg/dL (8.5-10.1); CARBON DIOXIDE 23 mmol/L (21-32); CHLORIDE 103 mmol/L (98-107); CREATININE 3.6 mg/dL (0.6-1.3); GLUCOSE 232 mg/dL (74-106); POTASSIUM 3.7 mmol/L (3.5-5.1); SODIUM SERUM 140 mmol/L (136-145)
[2023-09-16 06:06] LABS: UREA NITROGEN, BLOOD 108 mg/dL (7-18)
[2023-09-16 07:45] LABS: BASOPHILS # (AUTO) 0.1 K/uL (0.0-0.2); BASOPHILS % (AUTO) 0.3 % (0.0-2.0); EOSINOPHILS % (AUTO) 0.1 % (0.0-6.0); HEMATOCRIT 34 % (39-51); HEMOGLOBIN 11.2 g/dL (13.5-17.5); LYMPHOCYTES # (AUTO) 0.5 K/uL (0.8-4.8); LYMPHOCYTES % (AUTO) 2.6 % (20.0-44.0); MEAN CORPUSCULAR HEMOGLOBIN 32 PG (26.0-33.0); MEAN CORPUSCULAR HGB CONC 33 g/dl (31.0-36.0); MEAN CORPUSCULAR VOLUME 98 fL (80-96); MONOCYTES # (AUTO) 1.1 K/uL (0.1-1.30); MONOCYTES % (AUTO) 5.9 % (2.0-12.0); NEUTROPHILS % (AUTO) 91.1 % (43.0-81.0); PLATELET COUNT (AUTO) 170 K/uL (150-450); RED BLOOD CELL COUNT(AUTO) 3.47 MIL/uL (4.5-6.0); RED CELL DISTRIBUTION WIDTH 14.2 % (11.5-15.0); WHITE BLOOD COUNT (AUTO) 18.7 K/uL (4.3-11.0)
[2023-09-16] MEDS ORDERED: DEXTROSE 50%-WATER 50 ML DISP.SYRIN IV PRN (08:30)
[2023-09-16] MEDS: INSULIN REGULAR, HUMAN 100 UNIT/ML 3 ML VIAL SQ PRN (09:25)
[2023-09-16] MEDS: BLOOD SUGAR DIAGNOSTIC 1 EACH STRIP IN SCH (12:03)
[2023-09-16] MEDS: ZOSYN IVPB 2.25 G in IV D5W 50ml IV SCH (14:00)
[2023-09-16] MEDS: ACETAMINOPHEN 325 MG TABLET PO PRN (21:36)
[2023-09-17] VITALS (108 sets, daily range): BP systolic 75–141; BP diastolic 50–93; TEMP 97.2–98; O2SAT 90–99
[2023-09-17] MEDS: AMIODARONE 150 MG/3 ML VIAL IV ONE ×2 (00:31→00:43)
[2023-09-17] MEDS: AMIODARONE 150 MG in IV D5W 100 ML IV ONE (00:31)
[2023-09-17] MEDS: AMIODARONE 450 MG in IV D5W 241 ML IV PRN (00:40)
[2023-09-17 00:43] LABS: BASOPHILS # (AUTO) 0.1 K/uL (0.0-0.2); BASOPHILS % (AUTO) 0.3 % (0.0-2.0); EOSINOPHILS # (AUTO) 0.1 K/uL (0.0-0.7); EOSINOPHILS % (AUTO) 0.5 % (0.0-6.0); HEMATOCRIT 33 % (39-51); HEMOGLOBIN 10.9 g/dL (13.5-17.5); LYMPHOCYTES # (AUTO) 0.4 K/uL (0.8-4.8); LYMPHOCYTES % (AUTO) 2.1 % (20.0-44.0); MEAN CORPUSCULAR HEMOGLOBIN 33 PG (26.0-33.0); MEAN CORPUSCULAR HGB CONC 33 g/dl (31.0-36.0); MEAN CORPUSCULAR VOLUME 98 fL (80-96); MONOCYTES # (AUTO) 0.8 K/uL (0.1-1.30); MONOCYTES % (AUTO) 4.5 % (2.0-12.0); NEUTROPHILS # (AUTO) 17.5 K/uL (1.8-8.9); NEUTROPHILS % (AUTO) 92.6 % (43.0-81.0); PLATELET COUNT (AUTO) 146 K/uL (150-450); RED BLOOD CELL COUNT(AUTO) 3.35 MIL/uL (4.5-6.0); RED CELL DISTRIBUTION WIDTH 14.5 % (11.5-15.0); WHITE BLOOD COUNT (AUTO) 18.9 K/uL (4.3-11.0)
[2023-09-17 00:54] LABS: CALCIUM, SERUM 7.9 mg/dL (8.5-10.1); CARBON DIOXIDE 22 mmol/L (21-32); CHLORIDE 105 mmol/L (98-107); CREATININE 3.6 mg/dL (0.6-1.3); GLUCOSE 167 mg/dL (74-106); POTASSIUM 3.1 mmol/L (3.5-5.1); SODIUM SERUM 141 mmol/L (136-145); UREA NITROGEN, BLOOD 104 mg/dL (7-18)
[2023-09-17] MEDS: POTASSIUM CHLORIDE 10 MEQ/50 ML PREMIXED IVPB FOR PERIPHERAL LINE IV ONE (01:35)
[2023-09-17] MEDS ORDERED: DEXTROSE 50%-WATER 50 ML DISP.SYRIN IV PRN (08:00)
[2023-09-17] MEDS: DOCUSATE SODIUM LIQ 100 MG/10 ML UDC NG SCH (08:39)
[2023-09-17] MEDS: PANTOPRAZOLE 40 MG/PACK PACK GT SCH (08:39)
[2023-09-17] MEDS: BLOOD SUGAR DIAGNOSTIC 1 EACH STRIP IN SCH (12:18)
[2023-09-17] MEDS: INSULIN REGULAR, HUMAN 100 UNIT/ML 3 ML VIAL SQ PRN (12:45)
[2023-09-17] MEDS: POTASSIUM CL. PREMIX PERIPHER. 50 ML IV SCH (17:02)
[2023-09-17] MEDS: DOCUSATE SODIUM 100 MG CAPSULE PO SCH (20:17)
[2023-09-18] VITALS (92 sets, daily range): BP systolic 97–137; BP diastolic 56–83; TEMP 98–98.2; O2SAT 93–98
[2023-09-18 04:47] LABS: BASOPHILS % (AUTO) 0.2 % (0.0-2.0); EOSINOPHILS # (AUTO) 0.1 K/uL (0.0-0.7); EOSINOPHILS % (AUTO) 0.4 % (0.0-6.0); HEMATOCRIT 33 % (39-51); HEMOGLOBIN 11.1 g/dL (13.5-17.5); LYMPHOCYTES # (AUTO) 0.5 K/uL (0.8-4.8); LYMPHOCYTES % (AUTO) 2.7 % (20.0-44.0); MEAN CORPUSCULAR HEMOGLOBIN 33 PG (26.0-33.0); MEAN CORPUSCULAR HGB CONC 34 g/dl (31.0-36.0); MEAN CORPUSCULAR VOLUME 97 fL (80-96); MONOCYTES # (AUTO) 1.1 K/uL (0.1-1.30); MONOCYTES % (AUTO) 5.8 % (2.0-12.0); NEUTROPHILS # (AUTO) 17.9 K/uL (1.8-8.9); NEUTROPHILS % (AUTO) 90.9 % (43.0-81.0); PLATELET COUNT (AUTO) 168 K/uL (150-450); RED BLOOD CELL COUNT(AUTO) 3.38 MIL/uL (4.5-6.0); RED CELL DISTRIBUTION WIDTH 14.4 % (11.5-15.0); WHITE BLOOD COUNT (AUTO) 19.7 K/uL (4.3-11.0)
[2023-09-18 04:52] LABS: CALCIUM, SERUM 7.9 mg/dL (8.5-10.1); CARBON DIOXIDE 22 mmol/L (21-32); CHLORIDE 104 mmol/L (98-107); CREATININE 3.3 mg/dL (0.6-1.3); GLUCOSE 131 mg/dL (74-106); POTASSIUM 3.6 mmol/L (3.5-5.1); SODIUM SERUM 138 mmol/L (136-145)
[2023-09-18 05:05] LABS: UREA NITROGEN, BLOOD 105 mg/dL (7-18)
[2023-09-18] MEDS: AMIODARONE HCL 200 MG TABLET PO SCH (09:38)
[2023-09-18] MEDS: MORPHINE SULFATE INJ 4 MG/ML DISP.SYRIN IV PRN (22:25)
[2023-09-19] VITALS (17 sets, daily range): BP systolic 57–104; BP diastolic 36–65; TEMP 98–98.1; O2SAT 62–95
[2023-09-19] MEDS: LORAZEPAM INJ 2 MG/ML VIAL IV ONE (11:09)
[2023-09-19] MEDS: MORPHINE SULFATE INJ 4 MG/ML DISP.SYRIN IV PRN (11:09)
== END 2023-09-19 17:06 | DRG 871 ==
LOC: ER 06:00 → ICU 11:36
PROVIDERS: ADMIT Student in an Organized Health Care Education/Training Program; ATTEND Nurse Practitioner Acute Care
PROC: 02HV33Z Insertion of Infusion Device into Superior Vena Cava, Percutaneous Approach (ICD-10-PCS; principal; 2023-09-08)
PROC: B548ZZA Ultrasonography of Superior Vena Cava, Guidance (ICD-10-PCS; 2023-09-08)
PROC: 0W993ZZ Drainage of Right Pleural Cavity, Percutaneous Approach (ICD-10-PCS; 2023-09-14)
DX: A41.9 Sepsis, unspecified organism (principal); E11.10 Type 2 diabetes mellitus with ketoacidosis without coma; I21.4 Non-ST elevation (NSTEMI) myocardial infarction; R65.21 Severe sepsis with septic shock; N17.0 Acute kidney failure with tubular necrosis; J96.01 Acute respiratory failure with hypoxia; J18.9 Pneumonia, unspecified organism; Z51.5 Encounter for palliative care; I50.23 Acute on chronic systolic (congestive) heart failure; G92.8 Other toxic encephalopathy; D68.59 Other primary thrombophilia; E87.1 Hypo-osmolality and hyponatremia; J98.11 Atelectasis; E44.0 Moderate protein-calorie malnutrition; I42.9 Cardiomyopathy, unspecified; I13.0 Hypertensive heart and chronic kidney disease with heart failure and stage 1 through stage 4 chronic kidney disease, or unspecified chronic kidney disease; R57.0 Cardiogenic shock; N18.9 Chronic kidney disease, unspecified; E03.9 Hypothyroidism, unspecified; E86.9 Volume depletion, unspecified; E88.09 Other disorders of plasma-protein metabolism, not elsewhere classified; I25.10 Atherosclerotic heart disease of native coronary artery without angina pectoris; I48.91 Unspecified atrial fibrillation; R13.10 Dysphagia, unspecified; Z86.73 Personal history of transient ischemic attack (TIA), and cerebral infarction without residual deficits; Z95.1 Presence of aortocoronary bypass graft; M89.8X9 Other specified disorders of bone, unspecified site; Z95.0 Presence of cardiac pacemaker; Z20.822 Contact with and (suspected) exposure to COVID-19; R53.1 Weakness; D64.9 Anemia, unspecified; Z68.22 Body mass index [BMI] 22.0-22.9, adult; D63.8 Anemia in other chronic diseases classified elsewhere; E11.22 Type 2 diabetes mellitus with diabetic chronic kidney disease; Z79.4 Long term (current) use of insulin; Z96.41 Presence of insulin pump (external) (internal)
CPT/HCPCS: 36415; 36569; 36600; 71045-TC; 76770-TC; 80048-TC; 80053-TC; 80076-TC; 80202-TC; 81001; 82010-TC; 82550-TC; 82553; 82570-TC; 82803-TC; 82962-TC; 83605-TC; 83735-TC; 83880; 83970; 84100-TC; 84132-TC; 84155; 84165; 84300-TC; 84439-TC; 84443-TC; 84484-TC; 85025-TC; 85610-TC; 85730-TC; 87040-TC; 87081-TC; 87086-TC; 87102-TC; 88108-TC; 88305-TC; 88312-TC; 88341; 88342; 89051-TC; 92526; 92611-TC; 93307-TC; 94762-TC; 94799-TC; A4223; A4349; A6403; C9113; G0378; J0282; J1250; J1644; J1815; J1940; J2060; J2270; J2405; J2543; J3370; J3371; J3480; J3490; J7030; J7040; J7050; J7060; J7070